=== PATIENT | female | born 1980 | race Caucasian/White ===

== ENCOUNTER 2016-08-07 10:55 | Inpatient (IN) | payer OTHER ==
[~2016-08-07] VITALS: Ht 178 cm; Wt 81.0 kg
[~2016-08-07 10:55] MED LIST: 0.9% SODIUM CHLORIDE 10 ML VIAL IVP ONE; ONDANSETRON HCL 4 MG/2 ML VIAL IVP ONE; OXYTOCIN 10 UNITS/ML VIAL IM ONE
[2016-08-07] MEDS ORDERED: OXYTOCIN 30 UNITS/LACT RINGERS 500 ML IV ONE (11:11)
[2016-08-07] MEDS ORDERED: RINGERS SOLUTION,LACTATED 1,000 ML IV PRN (11:11)
[2016-08-07] MEDS ORDERED: CITRIC ACID/SODIUM CITRATE 30 ML SOLUTION UDCUP PO PRN (11:15)
[2016-08-07] MEDS ORDERED: METOCLOPRAMIDE HCL 5 MG/ML 2 ML VIAL IVP PRN (11:15)
[2016-08-07] MEDS ORDERED: FentaNYL CITRATE-PF 100 MCG/2 ML VIAL IVP PRN ×5 (11:15→13:15)
[2016-08-07 12:54] VITALS: BP 114/76
[2016-08-07] MEDS ORDERED: NALBUPHINE HCL 10 MG/ML VIAL IVP PRN ×3 (13:15)
[2016-08-07] MEDS ORDERED: DiphenhydrAMINE HCL 50 MG/ML VIAL IVP PRN ×2 (13:15)
[2016-08-07] MEDS ORDERED: ACETAMINOPHEN 1000 MG/ISO-OSM 100 ML IV PRN (13:15)
[2016-08-07] MEDS ORDERED: NALOXONE HCL 0.4 MG/ML VIAL IVP PRN (13:15)
[2016-08-07] MEDS ORDERED: MEPERIDINE-PF 25 MG/ML SYRINGE IVP PRN (13:15)
[2016-08-07] MEDS ORDERED: ONDANSETRON HCL 4 MG/2 ML VIAL IVP PRN ×2 (13:15)
[2016-08-07] MEDS ORDERED: KETOROLAC TROMETHAMINE 30 MG/ML VIAL ONE (14:15)
[2016-08-07] MEDS: KETOROLAC TROMETHAMINE 30 MG/ML VIAL IVP PRN ×2 (14:20→20:46)
[2016-08-07] MEDS ORDERED: RINGERS SOLUTION,LACTATED 1,000 ML IV SCH (14:26)
[2016-08-07] MEDS ORDERED: MORPHINE SULFATE/PF 0.5 MG/ML 10 ML AMP IVP ONE (14:29)
[2016-08-07] MEDS ORDERED: FentaNYL CITRATE-PF 100 MCG/2 ML VIAL IVP ONE (14:29)
[2016-08-07] MEDS ORDERED: GLYCERIN/WITCH HAZEL LEAF 40 PADS JAR TP PRN (14:30)
[2016-08-07] MEDS ORDERED: OxyCODONE HCL/ACETAMINOPHEN 5-325 MG TABLET PO PRN (14:30)
[2016-08-07] MEDS ORDERED: LANOLIN 7 GM OINTMENT TP PRN (14:30)
[2016-08-07 15:27] LABS: BASOPHILS % (AUTO) 0.3 % (0.0-2.0); EOSINOPHILS % (AUTO) 0 % (1.0-6.0); HEMATOCRIT 30.2 % (36-46); HEMOGLOBIN 9.8 g/dL (12.0-16.0); LYMPHOCYTES # (AUTO) 1.1 K/uL (1.0-4.8); LYMPHOCYTES % (AUTO) 5.9 % (22.0-44.0); MEAN CORPUSCULAR HEMOGLOBIN 27.7 pg (26.0-34.0); MEAN CORPUSCULAR HGB CONC 32.5 G/dL (31.0-37.0); MEAN CORPUSCULAR VOLUME 85 fL (80-100); MONOCYTES # (AUTO) 0.8 K/uL (0.1-1.0); MONOCYTES % (AUTO) 4.3 % (2.0-9.0); NEUTROPHILS # (AUTO) 17.3 K/uL (1.8-7.7); RED BLOOD CELL COUNT(AUTO) 3.54 MIL/uL (4.00-5.20); RED CELL DISTRIBUTION WIDTH 13.9 % (11.5-14.5); WHITE BLOOD COUNT (AUTO) 19.3 K/uL (4.5-11.0)
[2016-08-07 15:28] LABS: NEUTROPHILS % (AUTO) 89.5 % (40.0-70.0)
[2016-08-07 15:42] LABS: RBC MORPHOLOGY COMMENT NORMAL RBC MORPH
[2016-08-07] MEDS: RINGERS SOLUTION,LACTATED 1,000 ML IV SCH ×2 (17:50→19:11)
[2016-08-07] MEDS ORDERED: OXYGEN THERAPY IH SCH ×4 (20:00)
[2016-08-07] MEDS: CeFAZolin 1 GM/DEXTROSE 50 ML IV SCH (20:46)
[2016-08-07] MEDS: SENNA/DOCUSATE SODIUM 187-50 MG TABLET PO SCH (21:00)
[2016-08-07] MEDS: MAGNESIUM HYDROXIDE SUSPENSION 30 ML UDCUP PO SCH (21:00)
[2016-08-08] MEDS: CeFAZolin 1 GM/DEXTROSE 50 ML IV SCH (04:06)
[2016-08-08 05:46] LABS: BASOPHILS % (AUTO) 0.1 % (0.0-2.0); EOSINOPHILS % (AUTO) 0.2 % (1.0-6.0); HEMOGLOBIN 7.3 g/dL (12.0-16.0); LYMPHOCYTES # (AUTO) 1.1 K/uL (1.0-4.8); LYMPHOCYTES % (AUTO) 7.4 % (22.0-44.0); MEAN CORPUSCULAR HEMOGLOBIN 26.9 pg (26.0-34.0); MEAN CORPUSCULAR HGB CONC 31.7 G/dL (31.0-37.0); MEAN CORPUSCULAR VOLUME 85 fL (80-100); MONOCYTES # (AUTO) 0.9 K/uL (0.1-1.0); MONOCYTES % (AUTO) 5.6 % (2.0-9.0); NEUTROPHILS # (AUTO) 13.4 K/uL (1.8-7.7); RED BLOOD CELL COUNT(AUTO) 2.71 MIL/uL (4.00-5.20); WHITE BLOOD COUNT (AUTO) 15.5 K/uL (4.5-11.0)
[2016-08-08 06:07] LABS: NEUTROPHILS % (AUTO) 86.7 % (40.0-70.0)
[2016-08-08] MEDS: IBUPROFEN 600 MG TABLET PO PRN ×3 (08:15→21:08)
[2016-08-08] MEDS: SENNA/DOCUSATE SODIUM 187-50 MG TABLET PO SCH ×2 (09:00→21:09)
[2016-08-08] MEDS: MAGNESIUM HYDROXIDE SUSPENSION 30 ML UDCUP PO SCH ×2 (09:00→21:08)
[2016-08-08] MEDS: OxyCODONE HCL/ACETAMINOPHEN 5-325 MG TABLET PO PRN (21:38)
[2016-08-09] MEDS: OxyCODONE HCL/ACETAMINOPHEN 5-325 MG TABLET PO PRN ×2 (06:41→12:38)
[2016-08-09] MEDS: SENNA/DOCUSATE SODIUM 187-50 MG TABLET PO SCH (09:00)
[2016-08-09] MEDS: MAGNESIUM HYDROXIDE SUSPENSION 30 ML UDCUP PO SCH (09:00)
[2016-08-09] MEDS ORDERED: IBUP-2070 PO (12:54)
[2016-08-09] MEDS ORDERED: DSS100 PO (12:55)
[2016-08-09] MEDS ORDERED: FERR-89 PO (12:56)
[2016-08-09] MEDS ORDERED: PERCT PO (12:57)
== END 2016-08-09 14:30 | disposition home or self-care (01) | DRG 766 ==
LOC: 4S 10:55 → PREOBSVTOIN 08-23 11:09
PROVIDERS: ADMIT Obstetrics & Gynecology; ATTEND Obstetrics & Gynecology
PROC: 10D00Z1 Extraction of Products of Conception, Low, Open Approach (ICD-10-PCS; principal; 2016-08-07)
DX: O32.1XX0 Maternal care for breech presentation, not applicable or unspecified (principal); O69.81X0 Labor and delivery complicated by cord around neck, without compression, not applicable or unspecified; O77.0 Labor and delivery complicated by meconium in amniotic fluid; Z3A.38 38 weeks gestation of pregnancy; Z37.0 Single live birth
CPT/HCPCS: 86850; 86900; 86901; J0131; J0690; J1885; J2274; J2405; J2590; J3010; J7120